=== PATIENT | female | born 1975 | race Caucasian/White ===

== ENCOUNTER 2017-04-11 08:42 | Emergency (ER) | payer OTHER ==
[~2017-04-11] VITALS: Ht 162.6 cm; Wt 77.3 kg
[2017-04-11 08:45] VITALS: BP 110/73; PULSE 94; RESP 10; O2SAT 99
[2017-04-11] MEDS ORDERED: 0.9% Sodium Chloride 1,000 ML IV ONE (09:19)
--- NOTE | 2017-04-11 09:19 | ED.REPORT ---
HPI-Abd Pain F 40 and Over Date of Service Apr 11, 2017 ED Provider: Eren Morales MD A 42 year old female with a history of tubal ligation presents to the ED with RLQ abdominal pain that began at 0030 last night. Associated symptoms include nausea, vomiting and one episode of watery diarrhea. Her pain has been constant since onset. She was seen at Urgent Care this morning and was directed to the ED for further evaluation. She drank fluids this morning with no relief. Patient denies any hematochezia, hematemesis, dysuria, constipation, fever, chills, or back pain. She last ate yesterday evening and admits to EtOH use last night. Nursing Notes Stated Complaint: ABDOMINAL PAIN,NAUSEA Chief Complaint: Female Abdominal Pain Nursing Notes Reviewed: Yes Allergies: Coded Allergies: No Known Allergies (Verified , 09/17/06) Scheduled Ciprofloxacin (Ciprofloxacin) 500 Mg Tablet 500 MG PO BID Metronidazole (Flagyl) 500 Mg Tablet 500 MG PO Q8H Scheduled PRN Hydrocodone-Acetaminophen 5-325 mg (Hydrocodone-Acetaminophen 5-325 mg) 1 Each Tablet 1 TABLET PO Q4H PRN PRN For Pain Ondansetron ODT (Zofran ODT) 4 Mg Tablet 4 MG PO Q4H PRN PRN For Nausea General Time Seen by MD: 09:15 Chief Complaint Abdominal pain Hx Obtained From: Patient Arrived By: Walk-in Sudden in Onset?: No Onset Occurred: 5 - 8 hours ago (0030) Symptom Duration: Since onset Progression since Onset: Constant Location: : RLQ Quality: Painful Radiation: : Does not radiate Severity: Current: Mild Severity: Maximum: Moderate Associated with: Reports: Nausea Pertinent Negative: Pt denies other symptoms Recent Healthcare: No recent hospitalization, Recent doctor visit Risk Factors )( AAA Risk Stratification Risk factors reviewed Past Medical History Past Medical History Depression Past Surgical History Tubal Ligation Smoking History Unknown if Ever Smoker Social History Other Social History: Good social support, Local resident Ambulatory Status Independent Review of Systems Constitutional: Denies: Chills, Fever GI: Reports: Abdominal pain, Diarrhea (1 episode), Nausea, Vomiting, Denies: Constipation, Hematemesis, Hematochezia Female: Denies: Dysuria Musculoskeletal: Denies: Back pain Complete sys rev & neg: except as marked. Physical Exam Vital Signs Vital Signs (First) Date Time Temp Pulse Resp B/P Pulse Ox O2 Delivery O2 Flow Rate FiO2 04/11/17 08:45 36.3 94 10 110/73 99 Room Air Initial VS: Reviewed Head / Eyes: Atraumatic, Normocephalic, PERRL Neck: Supple, Non-tender, Full range of motion Extremities: Vascular intact, Neuro intact, No swelling, No tenderness Skin: Warm, Dry, No cyanosis Neurologic: Alert, Oriented, Nonfocal Psychiatric: Mood/affect normal, Behavior normal, Normal thought content General/Constitutional: Awake, Alert, No acute distress, Well appearing, Well developed Respiratory / Chest: Atraumatic, Breath sounds NL, Breath sounds = bilat, No respiratory distress Cardiovascular: Heart rate NL, Regular rhythm, Heart sounds NL, No murmurs Abdomen: Atraumatic, Soft, No guarding, No rebound, BS normoactive Tenderness/Guarding/Rebound: Positive: Tender RLQ... (Pain worse in RLQ), Tender diffuse (Diffuse pain) Back: Atraumatic, Inspection NL Interpretation & Diagnostics Lab Results Interpretation Result Diagram: 04/11/17 0905 04/11/17 0905 Test 04/11/17 09:05 04/11/17 11:50 White Blood Count 14.8th/mm3 (3.8-10.1) Red Blood Count 4.83mil/mm3 (3.90-5.20) Hemoglobin 13.7g/dL (12.0-15.6) Hematocrit 39.9% (35.0-46.0) Mean Corpuscular Volume 82.6fL (81-100) Mean Corpuscular Hemoglobin 28.4pg (27.0-35.0) Mean Corpuscular Hemoglobin Concent 34.3% (32.0-37.0) Red Cell Distribution Width 13.8% (12.3-15.4) Platelet Count 314bil/L (150-400) Neutrophils (%) (Auto) 74.9% (40-74) Lymphocytes (%) (Auto) 16.1% (14-46) Monocytes (%) (Auto) 7.9% (4-12) Eosinophils (%) (Auto) 0.2% (0-5) Basophils (%) (Auto) 0.3% (0-3) Sodium Level 140mEq/L (134-144) Potassium Level 3.7mEq/L (3.5-5.2) Chloride Level 103mEq/L (97-108) Carbon Dioxide Level 21mmol/L (18-29) Blood Urea Nitrogen 7mg/dL (6-24) Creatinine 0.66mg/dL (0.57-1.00) Estimat Glomerular Filtration Rate 140mL/min (>59) Glucose Level 107mg/dL (60-99) Calcium Level 9.1mg/dL (8.5-10.1) Magnesium Level 1.7mg/dL (1.6-2.6) Total Bilirubin 0.4mg/dL (0.0-1.2) Aspartate Amino Transf (AST/SGOT) 25U/L (0-50) Alanine Aminotransferase (ALT/SGPT) 25U/L (0-32) Alkaline Phosphatase 84U/L (25-150) Total Protein 7.4g/dL (6.4-8.4) Albumin 4.1g/dL (3.4-5.0) Lipase 26U/L (13-60) Hold Cardenas Top Tube Received (Received) Urine Color Yellow (YELLOW) Urine Appearance Clear (CLEAR,HAZY) Urine pH 8.0 (5.0-8.0) Urine Specific [place] 1.060 (1.003-1.035) Urine Protein Negativemg/dL (NEG,TRACE) Urine Glucose (UA) Negativemg/dL (NEGATIVE) Urine Ketones Negativemg/dL (NEGATIVE) Urine Occult Blood Negative (NEGATIVE) Urine Nitrite Negative (NEGATIVE) Urine Bilirubin Negative (NEGATIVE) Urine Urobilinogen Normalmg/dL (NORMAL) Urine Leukocyte Esterase Negative (NEGATIVE) Urine RBC 0-2/hpf (0-2) Urine WBC 0-5/hpf (0-5) Urine Epithelial Cells Moderate/hpf (NONE-MOD) Urine Crystals None seen (NONE SEEN) Urine Bacteria None/hpf (NONE-FEW) Urine Hyaline Casts None/lpf (NONE) Urine Granular Casts None seen (NONE SEEN) Urine Waxy Casts None seen (NONE SEEN) Urine Red Blood Cell Casts None seen (NONE SEEN) Urine White Blood Cell Casts None seen (NONE SEEN) Urine Mucus None seen (None Seen) Urine Trichomonas None seen (NONE SEEN) Urine Yeast None (NONE SEEN) Urinalysis Comment None Urine Culture Reflexed Not indicated CT Abd / Pelvis Interpretation IMPRESSION: 1. Right ovarian cyst. 2. Appendix is unremarkable. No right lower quadrant inflammatory change. 3. Cholelithiasis without imaging evidence of cholecystitis. 4. Mildly thickened appearance of the right colon extending to the transverse colon without inflammatory change. This could be secondary to area to a very early colitis versus incomplete distention. Dictated by: Sinai Burrell M.D. on 04/11/2017 at 11:33 Study type: Abdominal CT IV contrast Interpretation / Wet Read by: Interpret - Radiologist US Focused Biliary IMPRESSION: 1. Cholelithiasis without imaging evidence of cholecystitis. 2. Appendix is suboptimally evaluated. Dictated by: Sinai Burrell M.D. on 04/11/2017 at 12:36 Exam Performed by: Radiologist Re-Eval/Medical Decision Med Decision/Clinical Course 42-year-old female presenting with right lower quadrant pain since this morning. Associated nausea and vomiting. Labs show leukocytosis 14,000. CT scan shows cholelithiasis and possible developing mild colitis. No evidence of appendicitis. Ultrasound shows cholelithiasis no evidence of cholecystitis. Patient felt much better while she was here. Her vital signs are stable. Patient will be treated for cholelithiasis and possible colitis. Given prescription for Cipro and Flagyl with plans to follow-up with primary doctor in 1-2 days.. She will follow up with a surgeon for possible elective cholecystectomy. He is advised to return if any new or worsening abdominal pain, fevers, nausea vomiting, any other new or worsening symptoms. Re-Evaluation/Progress : Time of Eval: 12:49 Patient Status: Condition improved Re-Evaluation/Progress Note: Pain has improved. She is informed of her results and diagnosis. All questions about the intended treatment plan are addressed. She understands and agrees with the plan. Patient denies any recent antibiotic use. Counseled Regarding: Diagnosis, Lab results, Need for follow-up, When/why to return to ED Discharge & Departure Primary Impression: Colitis Additional Impression: Cholelithiasis Disposition: Home Discharge Condition All VS Reviewed: Yes Condition: Stable Patient Instructions: Colitis (ED), Gallstones (ED) Additional Instructions: Thank you for trusting us with your care this morning. Your emergency department results including examination, ultrasound and abdominal CT are reassuring that this is not appendicitis and I believe your symptoms are likely due to colitis. Your CT did also reveal gallstones which will require follow up with the general surgeon (see referral). Take the full course of Ciprofloxacin as directed. Take the full course of Flagyl as directed. Take hydrocodone as directed for pain. I recommend a light diet for the next few days (i.e chicken broth). Please schedule a follow up appointment with your primary care physician tomorrow. Please return to the emergency department for any new or worsening symptoms including any nausea, vomiting, worsening abdominal pain, high fevers, or shaking chills. Referrals: John Solano MD (PCP) Bora Nickerson MD Attestation Portions of this note were transcribed by Talia Thornton. I, Dr. Morales personally performed the history, physical exam and medical decision-making; I reviewed and confirmed the accuracy of the information in the transcribed note. Signed by: Guanakito Griffith, 04/11/17 2045. copies to: John Solano MD, Ben M MD Apr 11, 2017 09:19 TALIA THORNTON Apr 11, 2017 09:25
[2017-04-11 09:20] LABS: BASOPHILS % (AUTO) 0.3 % (0-3); EOSINOPHILS % (AUTO) 0.2 % (0-5); MONOCYTES % (AUTO) 7.9 % (4-12); Mean Corpuscular Hemoglobin 28.4 pg (27.0-35.0); Mean Corpuscular Volume 82.6 fL (81-100); NEUTROPHILS % (AUTO) 74.9 % (40-74); Platelet Count 314 bil/L (150-400)
[2017-04-11] MEDS ORDERED: Ondansetron 2 mg/mL 2 mL Inj IVPUSH PRN (09:20)
[2017-04-11 09:40] LABS: Magnesium 1.7 mg/dL (1.6-2.6)
[2017-04-11 11:00] VITALS: BP 117/68; PULSE 88; RESP 16; O2SAT 99
--- NOTE | 2017-04-11 11:42 | DRSVH ---
PROCEDURE: CT ABDOMEN AND PELVIS WITH CONTRAST ([id number]) INDICATIONS: diffuse abd pain, leukocytosis TECHNIQUE: After the administration of intravenous contrast, 5 mm thick sections acquired from the diaphragm to the symphysis. 5 mm coronal and sagittal reformats were acquired. For radiation dose reduction, the following was used: automated exposure control, adjustment of mA and/or kV according to patient siz e. COMPARISON: [facility], CT, ABD/PELVIS W/CON (PNL), 08/17/2011, 17:28. FINDINGS: Image quality: Excellent. ABDOMEN: Lung bases: Lung bases are clear. Heart size is normal. Solid organs: Liver is enlarged with steatosis. The spleen is normal in size and enhancement. Gallb ladder demonstrates a luminal calcification without wall thickening Biliary system is non dilated. P ancreas enhances normally. No adrenal nodules. Kidneys demonstrate normal size and enhancement, wit hout hydronephrosis. Peritoneum and bowel: Bowel loops are nonobstructed. There is a mildly thickened appearance of the d istal ascending/proximal transverse colon. However, it is incompletely distended. No free fluid or ai r. The appendix is unremarkable. No right lower quadrant fluid or inflammatory change. Nodes and vessels: No retroperitoneal or mesenteric adenopathy by size criteria. Aorta and inferior vena cava are normal in size. Miscellaneous: No ventral hernias. PELVIS: Genitourinary: Bladder wall thickness is normal. Right adnexal cyst is present measuring 23 mm. The uterus is enlarged and lobulated consistent with fibroids including likely exophytic lower uterine s egment fibroid, unchanged compared to prior exam. Miscellaneous: No inguinal hernias or adenopathy. Bones: No suspicious bony lesions. No vertebral body compression fractures. IMPRESSION: 1. Right ovarian cyst. 2. Appendix is unremarkable. No right lower quadrant inflammatory change. 3. Cholelithiasis without imaging evidence of cholecystitis. 4. Mildly thickened appearance of the right colon extending to the transverse colon without inflammat ory change. This could be secondary to area to a very early colitis versus incomplete distention. Dictated by: Sinai Burrell M.D. on 04/11/2017 at 11:33 Approved by: Sinai Burrell M.D. on 04/11/2017 at 11:41
[2017-04-11 12:27] VITALS: BP 110/65; PULSE 78; RESP 16; O2SAT 98
[2017-04-11 12:39] LABS: APPEARANCE,URINE CLEAR (CLEAR,HAZY); COLOR,URINE YELLOW (YELLOW); OCCULT BLOOD,URINE NEGATIVE (NEGATIVE); UROBILINOGEN,URINE NORMAL (NORMAL)
--- NOTE | 2017-04-11 12:40 | DRSVH ---
PROCEDURE: US ABDOMEN INDICATIONS: RLQ pain TECHNIQUE: Real-time scanning was performed of the abdominal and retroperitoneal organs, with image documentatio n. COMPARISON: None. FINDINGS: Liver length: 13.3 Gallbladder Wall Thickness: 1.70 mm CHD: 4.50 mm CBD: 2.20 mm Spleen length: 7.89 cm Right kidney length: 1.46 cm Left kidney length: 11.16 cm Aorta(Proximal): 2.0 cm Aorta(Mid): 1.7 cm Aorta(Distal): 1.21 cm RCIA: 1.4 cm LCIA: 1.1 cm Liver: Liver is normal in size and homogeneous in echotexture. Gallbladder: Gallbladder demonstrates a luminal stone without wall thickening or pericholecystic flui d. Biliary ducts: Intrahepatic bile ducts are non-dilated. Extrahepatic bile duct caliber is normal. Normal is 6-7 mm or less in diameter, or 10 mm or less post-cholecystectomy. Pancreas: Visualized portions of the pancreas are sonographically normal. Spleen: Spleen is normal in size and homogeneous in echotexture. Kidneys: Kidneys are normal in size and echotexture. No hydronephrosis or nephrolithiasis. No georgi d masses. Aorta: Visualized aorta is normal in caliber at less than 3 cm. Iliacs: Proximal common iliac arteries are normal in caliber at less than 2.5 cm. IVC: Intrahepatic inferior vena cava is patent. Miscellaneous: No free abdominal fluid. The appendix is suboptimally evaluated. IMPRESSION: 1. Cholelithiasis without imaging evidence of cholecystitis. 2. Appendix is suboptimally evaluated. Dictated by: Sinai Burrell M.D. on 04/11/2017 at 12:36 Approved by: Sinai Burrell M.D. on 04/11/2017 at 12:38
[2017-04-11] MEDS ORDERED: HYDR-4003 PO (12:59)
[2017-04-11] MEDS ORDERED: METR500T PO (12:59)
[2017-04-11] MEDS ORDERED: CIPR-198 PO (12:59)
[2017-04-11 13:01] VITALS: BP 106/72; PULSE 72; RESP 20; O2SAT 98
[2017-04-11 13:19] VITALS: BP 106/72; PULSE 72; RESP 20; O2SAT 98
[2017-04-11] MEDS ORDERED: ONDA4TAB9 PO (13:47)
== END 2017-04-11 13:48 | disposition home or self-care (01) ==
LOC: SED 08:42
DX: K52.9 Noninfective gastroenteritis and colitis, unspecified (principal); K80.20 Calculus of gallbladder without cholecystitis without obstruction; F32.9 Major depressive disorder, single episode, unspecified
CPT/HCPCS: 36415; 74177; 76700; 80053; 81000; 83690; 83735; 85025; 96361; 96374; 96375; 99285; J2270; J2405; J7030; Q9967

== ENCOUNTER 2017-05-19 12:30 | Day surgery (SDC) | payer OTHER ==
[~2017-05-19] VITALS: Ht 162.6 cm; Wt 74.8 kg
[~2017-05-19 12:30] MED LIST: BUPR100T8 PO; CIPR-198 PO; HYDR-4003 PO; METR500T PO; ONDA4TAB9 PO; Sodium Chloride LOK Flush 10 mL Syringe IV PRN; fentaNYL-PF 50 mCg/mL 2 mL Inj IVPUSH PRN
[2017-05-19] MEDS: 0.9% Sodium Chloride 1,000 ML IV SCH ×2 (13:21→14:50)
[2017-05-19 13:23] VITALS: BP 121/79; PULSE 93; RESP 16; O2SAT 97
[2017-05-19 15:08] VITALS: BP 109/69; PULSE 89; RESP 12; O2SAT 100
[2017-05-19 15:25] VITALS: BP 100/67; PULSE 85; RESP 12; O2SAT 98
[2017-05-19 15:29] VITALS: BP 108/73; PULSE 92; RESP 12; O2SAT 100
--- NOTE | 2017-05-19 15:31 | ENDO ---
[address] [address] ENDOSCOPY PROCEDURE PATIENT: EDWAR GONZALEZ : 1975 MR#: [id number] ADMIT: 05/19/2017 JOB ID: [id number] DATE: 05/19/2017 PRIMARY PROVIDER: John Solano M.D. PROCEDURE: Colonoscopy with biopsies. INDICATIONS: A 42-year-old female with about 11 months of intermittent tendency toward diarrhea. No bleeding. She has also had intermittent right-sided abdominal pain to go along with this. She has calcified gallstones but has not been diagnosed with acute cholecystitis. At CAT scan, there was a question of possible thickening of the right colon. Colonoscopy was, therefore, requested and pursued today. EQUIPMENT: PCF H 180 AL. SEDATION: 1. 7 mg Versed. 2. 125 mcg fentanyl. COMPLICATIONS: None identified. BOWEL PREPARATION: Very adequate. PROCEDURAL INFORMATION: After the risks and benefits were explained, written and verbal informed consent was obtained. The patient was brought into the endoscopy suite and placed into the left lateral decubitus position. Sedation was achieved as above. A digital rectal examination was accomplished. No pathology appreciated. The scope was introduced into the rectum and advanced to the cecum as identified by the appendiceal orifice and ileocecal valve. The scope was advanced into the terminal ileum. We then slowly withdrew to carefully examine the mucosa for any defects or lesions. Retroflexed views were avoided in the rectum. Multiple direct views were made through the dentate line for exclusion of pathology. The colon was decompressed. The scope removed from the patient who tolerated the procedure well. FINDINGS: The terminal ileum appeared completely normal. No signs of any inflammation or chronic IBD. The colon was devoid of any inflammatory features anywhere. We paid extra careful attention in and around the ascending colon and hepatic flexure region and there was no suggestion of any inflammatory activity. No significant polyps or mass lesions identified throughout. In light of the stooling changes, we elected to take a couple of random biopsies from the transverse for exclusion of microscopic disease. The patient had a mildly twisty tortuous navigation through the sigmoid region. No evidence of any proctitis anywhere. ENDOSCOPIC DIAGNOSIS: Visually normal colonoscopy and terminal ileoscopy. RECOMMENDATIONS: 1. Await histopathology. 2. Consider 2 tablespoons ground flaxseed fiber mixed with 8 ounces of water or juice at least once daily. 3. Followup in GI clinic in the next 2-3 weeks. 4. Followup at the discretion of Dr. Estes in regards to gallstones.
--- NOTE | 2017-05-24 16:43 | PATH ---
SURGICAL PATHOLOGY Attending Physician:Mavis Larson CASE STATUS: Signed Out PATIENT NAME: EDWAR GONZALEZ PID: [id number] : 1975 DATE COLLECTED:05/19/2017 00:00 SPECIMEN: Colon, Biopsy CLINICAL HISTORY: 1). RANDOM COLON BIOPSY, RULE OUT MICROSCOPIC COLITIS FINAL DIAGNOSIS: Random Colon, Biopsies: Colonic mucosa with no diagnostic abnormality. Negative for active or microscopic colitis. Negative for granulomata, dysplasia or malignancy. ICD10: R19.7 GROSS DESCRIPTION: Received in formalin, labeled with the patient' s name and "random colon biopsy", are two fragments of bethea, soft tissue ranging from 0.2 x 0.1 x 0.1 cm to 0.7 x 0.1 x 0.1 cm. The fragments are totally submitted in one cassette. ([id number]) ICD-9 CODES: CPT CODES: 1: 06969 Electronically Signed Out Rafa Navarro MD, Ph.D. [facility] Pathology [facility] [address], [place] [address] Technical component performed at [facility], [address] [place] [address] Ave[address], [place], [address]
[2017-05-25] MEDS ORDERED: OXYC5TAB72 PO (09:19)
== END 2017-05-19 23:59 | disposition home or self-care (01) ==
LOC: END 12:30
PROVIDERS: ATTEND Internal Medicine Gastroenterology
DX: R19.7 Diarrhea, unspecified (principal); J45.909 Unspecified asthma, uncomplicated; F32.9 Major depressive disorder, single episode, unspecified; Z80.0 Family history of malignant neoplasm of digestive organs
CPT/HCPCS: 45380; 99153; G0500; J2250; J3010; J7030

== ENCOUNTER → 2017-05-25 | Day surgery (SDC) | payer OTHER ==
[~2017-05-25] VITALS: Ht 162.6 cm; Wt 76.4 kg
[2017-05-25] VITALS (11 sets, daily range): BP systolic 107–118; BP diastolic 61–73; PULSE 71–86; RESP 11–22; O2SAT 98–100
[~2017-05-25] MED LIST changes: +Bupivacaine-MPF 0.5% 30 mL Inj INFILTRATE ONE; -CIPR-198 PO; +Dexamethasone 4 mg/mL Inj ONE; +EPHEDrine Sulfate 50 mg/mL Inj IVPUSH PRN; +EPHEDrine/NS 5 mg/mL 5 mL Syringe ONE; +Glycopyrrolate 0.2 mg/mL 5 mL Inj ONE; -HYDR-4003 PO; +HYDROmorphone 0.5 mg/0.5 mL iSecure Syringe ONE; +HYDROmorphone 1 mg/mL Inj IVPUSH PRN; +Lactated Ringer's 1,000 ML IV SCH; +Lactated Ringer's 500 ML IV PRN; -METR500T PO; +MetoCLOpramide 5 mg/mL 2 mL Inj IVPUSH PRN; +Neostigmine 1 mg/mL 10 mL Inj ONE; -ONDA4TAB9 PO; +OXYC5TAB72 PO; +Ondansetron 2 mg/mL 2 mL Inj IVPUSH PRN; +Ondansetron 2 mg/mL 2 mL Inj ONE; +Phenylephrine 10,000 mCg/mL Inj IVPUSH PRN; +Propofol 10 mg/mL 20 mL Inj ONE; +Rocuronium 10 mg/mL 5 mL Inj ONE; -Sodium Chloride LOK Flush 10 mL Syringe IV PRN; +fentaNYL-PF 50 mCg/mL 2 mL Inj ONE
[2017-05-25] MEDS: Lactated Ringer's 1,000 ML IV SCH ×2 (06:00→07:23)
--- NOTE | 2017-05-25 07:16 | PCM.HPANE ---
Patient Data Surgeon Admitting Provider: Attending Provider:Du Estes MD Primary Care Physician:John Solano MD Other Provider:Stephani Whitneyingham Anesthesia Reason for Visit Cholelithiasis Ht/WT & BMI Height (Feet): 5 Height (Inches): 4 Weight (Kilograms): 76.4 Body Mass Index 28.00 Allergies Coded Allergies: No Known Allergies (Verified , 05/21/17) Past Anesthesia History Anesthesia History: Denies:: Abnormal Airway, Anesthesia Reactions (NAUSEA AFTER), Difficult Intubation, Fam Anesthesia Reaction, Fam Malignant Hypertherm , Malignant Hyperthermia Diabetes History Hx Diabetes?: No MRSA MRSA: No Medications Home Meds Incl Beta Ludmila: No Reported Medications Bupropion ER 100 Mg Tablet.er300 Mg PO DAILY Ref 0 05/18/17 Discontinued Scripts Ondansetron ODT (Zofran ODT)4 Mg Tablet4 Mg PO Q4H PRN For Nausea #10 TABLET Prov:Eren Morales MD 04/11/17 Hydrocodone-Acetaminophen 5-325 mg 1 Each Tablet1 Tablet PO Q4H PRN For Pain # 10 TABLET Prov:Eren Morales MD 04/11/17 Metronidazole (Flagyl)500 Mg [id number] Mg PO Q8H 7 Days Prov:Eren Morales MD 04/11/17 Ciprofloxacin 500 Mg [id number] Mg PO BID 7 Days Prov:Eren Morales MD 04/11/17 History History of ENT Problems?: No HEENT History: Denies:: Abnormal Airway Difficult Intubation Dysphagia Hearing Problem Sinus Problem TMJ Denture Type: None Teeth Condition: Within Normal Limits Hx of Heart Problems?: No Cardiovascular History: Denies:: Congestive Heart Failure Hypertension Hx of Respiratory Problem?: No Respiratory History: Denies:: Pneumonia Tuberculosis Use of C-PAP Machine Use of Inhalers / NEBS Hx Neurologic Problems?: No Neurological History: Denies:: Alzheimer's Disease CVA Dementia Dizziness Headaches Multiple Sclerosis Parkinson's Disease Seizures TIA Hx of GI Problems?: Yes Hx of Problems?: No Genitourinary History: Denies:: Kidney Stones Urinary Tract Infection Female Hx: Denies:: Currently (hx: tubal ligation) Skin History: Denies:: History Skin Disorders? (SCRAPES ON LEGS FROM HIKING) Pressure Ulcers Hx Musculoskeletal Problems?: No Musculoskeletal History: Denies:: Back Injury Degenerative Joint Fibromyalgia Joint Replacement Musculoskeletal Trauma Myasthenia Gravis Osteoarthritis Rheumatoid Arthritis Systemic Lupus Psycho Social History: Positive for:: Hx Depression (TAKES BUPROPRION) Denies:: Anxiety Hx Surgeries?: Yes (TUBAL) Hx Any Other Health Problems?: Yes Other History: Denies:: Cancer Endocrine Disease Hospitalization Thyroid Disease History Blood Transfusions: Positive for:: Accept Blood Products? Denies:: Blood Transfusions Hx Diabetes: No Hx Alcohol Use: Yes (VERY RARELY)Hx Substance Use: No Smoking Status: Never Smoker Have You Smoked inLast 12 mo: No Stop/Bang S-Snoring: Do You Snore Loudly: No T-Tired: feel tired, fatigued: No O-Obsered: Observed not breath: No P-Blood Pressure: treated: No B- Body Mass Index > 35 kg/m2: No A- Age over 50: No N- Neck Large Circumference: No G- Gender Male: No RIMA Total Score: 0 RIMA Risk Assessment: Low Risk, <3 Yes Risk Assessment Category Category 1A: Patient has history of documented sleep apnea, and HAS NOT received any narcotic, sedative or anesthesia administration during this stay. Category 1B: Patient has history of documented sleep apnea, and HAS received any narcotic , sedative or anesthesia administration during this stay Category 2: Patient has SUSPECTED Obstructive Sleep Apnea, and HAS received any narcotic , sedative or anesthesia administration during this stay. Category 3: Patient has SUSPECTED Obstructive Sleep Apnea and HAS NOT received narcotic, sedative or anesthesia administration during this stay. Category 4: Outpatient in Procedural Areas with known sleep apnea or who screen positive for High Risk via the STOP/BANG questionnaire. Exam Exam Vital Signs Vital Signs Date Time Temp Pulse Resp B/P Pulse Ox O2 Delivery O2 Flow Rate FiO2 05/25/17 06:17 35.7 81 16 110/73 98 Room Air General Appearance: Alert, Oriented X3, Cooperative, No Acute Distress HEENT/AIRWAY: MP 1 Lungs: Clear to Auscultation, Normal Air Movement Heart: Exam Unremarkable, Regular Rate/Rhythm, No Murmurs/Rubs/Gallops Meds/Labs/Diagnostics Admission Meds Current Medications Lactated Ringer's (Lr) 1,000 ml @ 120 mls/hr Q8H20M IV Last administered on t 06:00; Start 05/25/17 at 05:00; Stop 05/25/17 at 13:19 Gabapentin (Neurontin) 600 mg PREOP ONCE PO Last administered on 05/25/17 06: 10; Start 05/25/17 at 06:00; Stop 05/25/17 at 06:01; Status DC Celecoxib (CeleBREX) 200 mg PREOP ONCE PO Last administered on 05/25/17 06:10 ; Start 05/25/17 at 06:00; Stop 05/25/17 at 06:01; Status DC Scopolamine (Transderm-Scop Patch) 1.5 mg ONCE ONCE TOPICAL Last administered on 05/25/17 06:10; Start 05/25/17 at 05:00; Stop 05/25/17 at 05:01; Status DC Acetaminophen (Tylenol) 650 mg PREOP ONCE PO Last administered on 05/25/17 06 :10; Start 05/25/17 at 06:00; Stop 05/25/17 at 06:01; Status DC Plan Impression Patient chart reviewed, patient interviewed and anesthestic plan with risks, benefits, and alternatives discussed, and informed consent obtained. ASA Physical Status: ASA2 Mod Systemic Disease Anesthetic Plan: GA Bene/Risks/Altern/Consents: Yes HP Complete Prior to Induction: Yes Luigi Le MD May 25, 2017 07:16
--- NOTE | 2017-05-25 09:08 | PCM.SURGPO ---
Immediate Operative Note Date of Surgery: May 25, 2017 Pre Operative Diagnosis Cholelithiasis Post Operative Diagnosis Cholelithiasis Procedure Laparoscopic Cholecystectomy with Cholangiogram Surgeon and Teacher Specialist Surgeon: Du Estes MD Assistants: DAVID Bowie, Rose Paz DO Findings Gallstones, Normal Cholangiogram, No inflammation Complications There were no periprocedural complications identified. Surgical Specimen Removed: Yes Specimen sent to Pathology: Yes Anesthetic Administered: GA Grafts, Implants: None Output, Estimated Blood Loss: 1 Blood Admin during surgery: No Attending Statement Supply Chain Generalist listed was medically necessary for the successful completion of the case Du Estes MD May 25, 2017 09:08
--- NOTE | 2017-05-25 09:28 | PCM.ANEP1 ---
Post Anesthesia PACU Phase 1 Assessment Vital Signs Vital Signs Date Time Temp Pulse Resp B/P Pulse Ox O2 Delivery O2 Flow Rate FiO2 05/25/17 09:20 73 22 113/67 99 Room Air 05/25/17 09:15 71 16 109/64 100 Room Air 05/25/17 09:10 79 20 109/63 99 Room Air 05/25/17 09:05 36.4 77 20 118/69 100 Simple Mask 8 05/25/17 06:17 35.7 81 16 110/73 98 Room Air Anesthetic Administered: GA Level of Alertness: Awake, talking CAREY's with Equal Strength: Yes Pain: No Pain Scale Score: 0 Nausea or Vomiting: No CV Function & Hydration Stable: No Airway Device: Endotrachial Tube Oxygen Delivery: Room Air Lungs: Clear to Auscultation, Normal Air Movement PACU Phase 2 Assessment Complications: No Follow up Care: No Patient Instructions Provided: Yes Luigi Le MD May 25, 2017 09:28
--- NOTE | 2017-05-25 09:57 | OP ---
[address] [address] OPERATIVE REPORT PATIENT: EDWAR GONZALEZ : 1975 MR#: [id number] ADMIT: 05/25/2017 JOB ID: [id number] DATE OF SURGERY: 05/25/2017 PREOPERATIVE DIAGNOSIS(ES): Cholelithiasis. POSTOPERATIVE DIAGNOSIS(ES): Cholelithiasis. PROCEDURE PERFORMED: 1. Laparoscopic cholecystectomy. 2. Intraoperative cholangiogram. SURGEON: Du Estes MD. ASSISTANTS: Mack Norton PA-C and Rose Paz DO. INDICATIONS: The patient is a 42-year-old lady who has had problems with intermittent abdominal pain and diarrhea over the years. She presented to our emergency department on April 11, 2017, with severe right-sided abdominal pain. Had a CT and was diagnosed with cholelithiasis, and sent her to me for surgical consultation. Her colonoscopy was normal. After discussing the risks, benefits and alternatives, she is brought here for laparoscopic cholecystectomy with cholangiogram. PROCEDURE DETAILS: She was placed in supine position. Underwent smooth induction of general anesthesia. Abdomen was prepped and draped in the usual sterile fashion. Surgical time-out was undertaken using safety checklist, and all were in agreement. I began by making an infraumbilical incision and entered the abdomen using open Deandre technique and Optiview trocar. I then upsized the port after obtaining pneumoperitoneum to 12 mm. I then placed three 5-mm ports in the epigastrium and right-sided upper abdomen and retracted the gallbladder cephalad and to the right in a reverse Trendelenburg position, and dissected the triangle of Calot anteriorly and posteriorly. I divided the cystic duct after obtaining a cholangiogram, which showed was normal. I controlled the cystic duct doubly with clips on the staying inside and again controlled the cystic artery with a clip. I dissected the rest of the gallbladder off the liver bed and placed it in an EndoCatch bag. After suctioning out all fluid from the right upper quadrant, I removed the gallbladder through the umbilical port site. I then closed the umbilical port fascia with [id number] 0 Vicryl suture. The skin of all incisions was reapproximated with 4-0 Monocryl. Steri-Strips and sterile dressing were applied. The patient was recovered from anesthesia and was taken to the recovery room in a stable condition.
--- NOTE | 2017-05-25 17:00 | DRSVH ---
PROCEDURE: X-RAY OPERATIVE CHOLANGIOGRAM ([id number]) INDICATIONS: CHOLELITHIASIS COMPARISON: [facility], CT, CT ABD PELVIS W CON, 04/11/2017, 11:17. [facility], US, US ABDOMEN, 04/11/2017, 10:02. FINDINGS: Biliary ducts: The surgeon injected contrast into the biliary ducts after cannulation of the cystic duct stump. Visualized intra- and extrahepatic bile ducts are normal in caliber, without strictures. No intraluminal filling defects to suggest retained ductal stones or sludge. No evidence for iatro genic ductal injury. Duodenum: Contrast flows promptly through the sphincter of Oddi into the duodenum, which appears nor mal in caliber. IMPRESSION: Normal exam. Dictated by: Jj RAMIREZ Interpreted: Rosa Strange MD on 05/25/2017 at 10:55 Approved by: Rosa Strange M.D. on 05/25/2017 at 16:58
--- NOTE | 2017-05-28 11:41 | PATH ---
SURGICAL PATHOLOGY Attending Physician:Du Estes MD CASE STATUS: Signed Out PATIENT NAME: EDWAR GONZALEZ PID: [id number] : 1975 DATE COLLECTED:05/25/2017 19:22 SPECIMEN: Gallbladder CLINICAL HISTORY: CHOLELITHIASIS, EXCISION 1). GALLBLADDER FINAL DIAGNOSIS: Gallbladder, Excision: Cholelithiasis with chronic cholecystitis. ICD10: K80.10 GROSS DESCRIPTION: The specimen is received in one formalin filled container labeled with the patient's name, sublabeled "gallbladder" and consists of an intact 7.5 x 2.0 x 2.0 CM gallbladder. The serosa is smooth. The wall is 0.2-0.3 CM in thickness. The mucosa is a dark green in color. The lumen contains a dark green mucoid material and one dark green calculus which measures 1.0 CM in greatest dimension. 5 treasury representative sections are submitted in one cassette. 05/25/2017DC ICD-9 CODES: CPT CODES: 1: 78029 Electronically Signed Out Jesse Medrano MD, PhD [facility] Pathology [facility] [address], [place] [address] Technical component performed at [facility], [facility] [address], [place], [address]
== END | disposition home or self-care (01) ==
LOC: SAS 05-19 00:11
PROVIDERS: ATTEND Student in an Organized Health Care Education/Training Program
DX: K80.10 Calculus of gallbladder with chronic cholecystitis without obstruction (principal); J45.909 Unspecified asthma, uncomplicated; F32.9 Major depressive disorder, single episode, unspecified